=== PATIENT | male | born 1970 | race African-American/Black ===

== ENCOUNTER 2019-02-12 20:06 | Emergency (ER) | payer MEDICAID ==
[~2019-02-12] VITALS: Ht 177.8 cm; Wt 82.0 kg
[2019-02-12] MEDS ORDERED: ALBUTEROL (0.083%) 2.5MG/3ML NEB HHN STA (20:12)
[2019-02-12] MEDS ORDERED: IPRATROPIUM BROMIDE (0.02%) 0.5MG/2.5ML NEB HHN STA (20:12)
[2019-02-12] MEDS ORDERED: METHYLPREDNISOLONE SOD SUCC 125 MG/2 ML VIAL IV ONE (20:15)
[2019-02-12 20:33] LABS: BASOPHILS % 0.8 % (0.0-2.0); HEMATOCRIT. 51.5 % (42.0-52.0); LYMPHOCYTES % 24.3 % (20.0-50.0); MEAN CORPUSCULAR HEMOGLOBIN 34.5 pg (28.0-32.0); MEAN CORPUSCULAR VOLUME 98.7 fL (80.0-94.0); MEAN PLATELET VOLUME 8.4 fl (7.4-10.4); MONOCYTES % 7.8 % (2.0-8.0); NEUTROPHILS % 65.1 % (40.0-76.0); PLATELET 238 x1000/uL (130-400); RED BLOOD CELL COUNT 5.22 mill/uL (4.7-6.1); RED CELL DISTRIBUTION WIDTH 13.1 % (11.6-14.6)
[2019-02-12 20:37] LABS: CHLORIDE 109 mEq/L (98-107)
[2019-02-13 00:58] VITALS: BP 149/85
== END 2019-02-13 01:00 | disposition home or self-care (01) ==
LOC: ER 20:06
DX: J44.1 Chronic obstructive pulmonary disease with (acute) exacerbation (principal); Z88.0 Allergy status to penicillin
CPT/HCPCS: 36415; 71045; 80053; 83880; 84484; 85025; 93005; 94644; 94660; 96374; 99291; J2930; J7611; Z7610